=== PATIENT | male | born 1980 | race Caucasian/White ===

== ENCOUNTER 2024-04-12 06:13 | Day surgery (SDC) | payer MEDICAID, OTHER ==
[2024-04-12] MEDS ORDERED: Propofol 200 MG/20 ML SDV IV ONE (06:14)
[2024-04-12] MEDS ORDERED: Lidocaine 2% 100 MG/5 ML Syringe IVPUSH ONE (06:14)
[2024-04-12] MEDS ORDERED: Midazolam 1 MG/ML 2 ML SDV IV ONE (06:14)
[2024-04-12] MEDS ORDERED: Sodium Chloride 0.9% 10 ML Syringe FLUSH PRN (06:15)
[2024-04-12] MEDS: Lactated Ringers 1,000 ML IV SCH (07:18)
[2024-04-12] MEDS: Simethicone Drops 40 MG/0.6 ML 30 ML Bottle PO ONE (07:45)
== END 2024-04-12 09:04 | disposition home or self-care (01) ==
LOC: FB.SDS 06:13
PROVIDERS: ATTEND Surgery
DX: Z12.11 Encounter for screening for malignant neoplasm of colon (principal); K40.90 Unilateral inguinal hernia, without obstruction or gangrene, not specified as recurrent; K42.0 Umbilical hernia with obstruction, without gangrene
CPT/HCPCS: 00812; A9270-GY; J2250; J2704; J7120

== ENCOUNTER 2024-08-12 19:40 | Emergency (ER) | payer MEDICAID ==
[2024-08-12] MEDS ORDERED: ALPRAZolam 0.5 MG Tab PO ONE (19:41)
[2024-08-12] MEDS: Aspirin 81 MG Tab.Chew PO ONE (19:50)
[2024-08-12 20:07] LABS: BASOPHILS PERCENT AUTO 0.4 % (0.3-3.8); EOSINOPHILS PERCENT AUTO 0.5 % (0.1-6.8); HEMATOCRIT 45.7 % (38.3-50.1); HEMOGLOBIN 15.6 g/dL (12.9-17.7); LYMPHOCYTES ABSOLUTE AUTO 2.2 x10-3/uL (0.5-4.5); LYMPHOCYTES PERCENT AUTO 23.3 % (15.8-45.3); MEAN CORPUSCULAR HEMOGLOBIN 29.9 pg (27.0-33.3); MEAN PLATELET VOLUME 7.6 fL (6.7-11.0); MONOCYTES ABSOLUTE AUTO 0.5 x10-3/uL (0.0-1.2); MONOCYTES PERCENT AUTO 5.6 % (5.5-15.2); NEUTROPHILS ABSOLUTE AUTO 6.7 x10-3/uL (1.7-6.9); NEUTROPHILS PERCENT AUTO 70.2 % (40.3-71.8); PLATELET COUNT,PLT 306 x10(3)uL (117-477); WHITE BLOOD CELL COUNT,WBC 9.6 x10-3/uL (3.2-10.1)
[2024-08-12 20:09] LABS: BLOOD UREA NITROGEN,BUN 13 mg/dL (7-18); CALCIUM 9.3 mg/dL (8.6-10.2); CARBON DIOXIDE,CO2 25 mmol/L (21-32); CHLORIDE,CL 105 mmol/L (100-110); ESTIMATED GFR 95 mL/min (>60); GLUCOSE RANDOM 131 mg/dL (80-116); POTASSIUM,K 3.3 mmol/L (3.5-5.3); SODIUM,NA 140 mmol/L (135-145)
[2024-08-12 20:15] LABS: A/G RATIO 1.3; ALANINE AMINOTRANSFERASE,ALT 50 U/L (12-36); ALBUMIN 4.3 g/dL (3.5-5.2); ALKALINE PHOSPHATASE 52 IU/L (56-112); ASPARTATE AMNIOTRANSFERASE,AST 19 IU/L (5-25); BILIRUBIN TOTAL 0.4 mg/dL (0.1-1.3); PROTEIN TOTAL,TP 7.5 g/dL (6.0-8.0)
[2024-08-12] MEDS: Sodium Chloride 0.9% 10 ML Syringe FLUSH PRN (20:16)
[2024-08-12 20:22] LABS: TROPONIN I 4.2 pg/mL (4.0-60.3)
== END 2024-08-12 21:20 | disposition home or self-care (01) ==
LOC: FB.ED 19:40
DX: F41.1 Generalized anxiety disorder (principal); E66.9 Obesity, unspecified; Z68.28 Body mass index [BMI] 28.0-28.9, adult
CPT/HCPCS: 36415; 71045; 80053; 83880; 84484; 85025; 85379; 93005; 99285; A9270

== ENCOUNTER 2025-03-07 06:14 | Day surgery (SDC) | payer MEDICAID ==
[2025-03-07] MEDS ORDERED: Propofol 200 MG/20 ML SDV IV ONE (06:15)
[2025-03-07] MEDS ORDERED: Midazolam 1 MG/ML 2 ML SDV IV ONE (06:15)
[2025-03-07] MEDS ORDERED: fentaNYL 100 MCG/2 ML SDV IV ONE (06:15)
[2025-03-07] MEDS ORDERED: Ondansetron 4 MG/2 ML SDV IVPUSH ONE (06:15)
[2025-03-07] MEDS ORDERED: Dexamethasone 4 MG/ML 5 ML MDV IVPUSH ONE (06:15)
[2025-03-07] MEDS ORDERED: Sodium Chloride 0.9% 10 ML Syringe FLUSH PRN (06:15)
[2025-03-07] MEDS ORDERED: diphenhydrAMINE 50 MG/ML SDV IVPUSH ONE (06:15)
[2025-03-07] MEDS ORDERED: Ketorolac 30 MG/ML SDV IVPUSH ONE (06:15)
[2025-03-07] MEDS: Lactated Ringers 1,000 ML IV SCH (06:56)
[2025-03-07] MEDS: Lidocaine 1% with EPINEPHrine 1:100,000 20 ML MDV INJECT ONE (07:52)
== END 2025-03-07 10:13 | disposition home or self-care (01) ==
LOC: FB.SDS 06:14
PROVIDERS: ATTEND Surgery
DX: K40.90 Unilateral inguinal hernia, without obstruction or gangrene, not specified as recurrent (principal); D17.6 Benign lipomatous neoplasm of spermatic cord; K42.0 Umbilical hernia with obstruction, without gangrene; Z79.899 Other long term (current) drug therapy
CPT/HCPCS: 00830; C1781; J0665; J0690; J1100; J1200; J1885; J2003; J2004; J2250; J2405; J2704; J3010; J7120